=== PATIENT | male | born 1950 | race Caucasian/White ===

== ENCOUNTER 2020-09-25 10:11 | Day surgery (SDC) | payer MEDICARE ==
[~2020-09-25] VITALS: Ht 182.9 cm; Wt 67.8 kg
[~2020-09-25 10:11] MED LIST: ASPI81TA45 PO; LEUP3.75 INJ; ROSU5TAB PO; TAMS-11 PO
[2020-09-25 10:46] VITALS: BP 146/84
[2020-09-25] MEDS ORDERED: FENTANYL PF 100 MCG/2ML ONE ×2 (10:49→12:33)
[2020-09-25] MEDS ORDERED: ENZA40CA PO (10:50)
[2020-09-25] MEDS ORDERED: PROMETHAZINE 25 MG/ML, 1ML IVPush PRN (11:00)
[2020-09-25] MEDS ORDERED: METOPROLOL 1 MG/ML, 5ML IV PRN (11:00)
[2020-09-25] MEDS ORDERED: EPHEDRINE 50 MG/ML, 1ML IVPush PRN (11:00)
[2020-09-25] MEDS ORDERED: METOCLOPRAMIDE 5 MG/ML, 2ML IVPush PRN (11:00)
[2020-09-25] MEDS ORDERED: METHOCARBAMOL 1,000 MG in DEXTROSE 5% 100 ML IV PRN (11:00)
[2020-09-25] MEDS ORDERED: LACTATED RINGERS 1,000 ML IV SCH (11:00)
[2020-09-25] MEDS ORDERED: CHLORHEXIDINE 15 ML UDC PO ONE (11:00)
[2020-09-25] MEDS ORDERED: HYDROmorphone 1 MG/ML, 1ML INJ IVPush PRN (11:00)
[2020-09-25] MEDS ORDERED: HALOPERIDOL 5 MG/ML IV PRN (11:00)
[2020-09-25] MEDS ORDERED: ONDANSETRON 2MG/ML, 2ML IVPush PRN (11:00)
[2020-09-25] MEDS ORDERED: DIPHENHYDRAMINE 50 MG/ML, 1ML IVPush PRN (11:00)
[2020-09-25] MEDS ORDERED: hydrALAzine 20 MG/ML, 1ML IV PRN (11:00)
[2020-09-25] MEDS ORDERED: MEPERIDINE/PF 25MG/0.5ML IVPush PRN (11:00)
[2020-09-25] MEDS ORDERED: LABETALOL 5MG/ML, 20ML IV PRN (11:00)
[2020-09-25] MEDS ORDERED: OXYcodone 5 MG/5 ML ORAL.SOL UDC PO PRN (11:00)
[2020-09-25] MEDS ORDERED: FENTANYL PF 100 MCG/2ML IV PRN (11:00)
[2020-09-25] MEDS ORDERED: ACETAMINOPHEN 325 MG TABLET PO PRN (11:00)
[2020-09-25] MEDS ORDERED: ACETAMINOPHEN 500 MG TABLET ONE (11:49)
[2020-09-25] MEDS ORDERED: LIDOCAINE/PF 0.5% ,50ML ONE (12:39)
[2020-09-25] MEDS ORDERED: HEPARIN 5,000 UNITS/ML, 1ML ONE (12:39)
[2020-09-25] MEDS ORDERED: HEPARIN 1,000 UNITS/ML, 10ML ONE (12:40)
[2020-09-25] MEDS ORDERED: KETOROLAC 30 MG/1 ML ONE (14:00)
[2020-09-25] MEDS ORDERED: LIDOCAINE-MPF 2% ,5ML ONE (14:00)
[2020-09-25] MEDS ORDERED: CEFAZOLIN 1,000 MG ONE (14:14)
[2020-09-25] MEDS ORDERED: DEXAMETHASONE 4 MG/ML, 1ML ONE (14:14)
[2020-09-25] MEDS ORDERED: PROPOFOL 10 MG/ML, 20ML ONE (14:14)
[2020-09-25] MEDS ORDERED: ONDANSETRON 2MG/ML, 2ML ONE (14:14)
[2020-09-25] MEDS ORDERED: HYDR-2214 PO (14:33)
== END 2020-09-25 17:22 | disposition home or self-care (01) ==
LOC: OUT 10:11
PROVIDERS: ATTEND Surgery
DX: C85.10 Unspecified B-cell lymphoma, unspecified site (principal); E78.5 Hyperlipidemia, unspecified; I25.10 Atherosclerotic heart disease of native coronary artery without angina pectoris; Z20.822 Contact with and (suspected) exposure to COVID-19; Z79.82 Long term (current) use of aspirin; Z79.899 Other long term (current) drug therapy; Z87.891 Personal history of nicotine dependence
CPT/HCPCS: 36561; 77001; 87635; 93005; C1788; J0690; J1100; J1644; J1885; J2001; J2405; J2704; J3010; J7120

== ENCOUNTER → 2020-12-18 | Outpatient (CLI) | payer MEDICARE ==
[~2020-12-18] MED LIST changes: +ENZA40CA PO; +HYDR-2214 PO
== END | disposition home or self-care (01) ==
LOC: CVU 11:30
PROVIDERS: ATTEND Specialist
DX: C61 Malignant neoplasm of prostate (principal); C85.11 Unspecified B-cell lymphoma, lymph nodes of head, face, and neck; I25.10 Atherosclerotic heart disease of native coronary artery without angina pectoris; E78.5 Hyperlipidemia, unspecified; I08.0 Rheumatic disorders of both mitral and aortic valves
CPT/HCPCS: 93306; 93356

== ENCOUNTER → 2021-02-19 | Outpatient (CLI) | payer MEDICARE | END | disposition home or self-care (01) | LOC: ROC 08:03 | PROVIDERS: ATTEND Radiology Radiation Oncology | DX: C83.31 Diffuse large B-cell lymphoma, lymph nodes of head, face, and neck (principal); C61 Malignant neoplasm of prostate; I25.10 Atherosclerotic heart disease of native coronary artery without angina pectoris; E78.5 Hyperlipidemia, unspecified ==